=== PATIENT | male | born 1955 | race Caucasian/White ===

== ENCOUNTER → 2017-07-31 | Outpatient (CLI) | payer BC, OTHER ==
[~2017-07-31] VITALS: Ht 185.4 cm; Wt 123.9 kg
[~2017-07-31] MED LIST: ABILIFY10 MG PO; ARMONAIR RESPI55 MCG BOTH NARES; BENADRYL50 MG PO; LEXAPRO20 MG PO; LORADAMED10 MG PO; LOTREL 10/41 CAPSULE PO; MINIPRESS2 MG PO; ZYLOPRIM300 MG PO
[2017-07-31 12:57] LABS: CHLORIDE 106 MEQ/L (99-109); POTASSIUM 4.1 MEQ/L (3.7-5.4); SODIUM 141 MEQ/L (136-147)
[2017-07-31 13:03] LABS: GFR ESTIMATE (CALCULATED) > 59 mL/min/ (58.99-99999); GLUCOSE 94 mg/dL (70-99); UREA NITROGEN (BUN) 8 mg/dL (9-23)
== END | disposition home or self-care (01) ==
LOC: AMB 12:07
PROVIDERS: Anesthesiology
DX: Z12.11 Encounter for screening for malignant neoplasm of colon (principal); K50.10 Crohn's disease of large intestine without complications; K57.30 Diverticulosis of large intestine without perforation or abscess without bleeding; K64.8 Other hemorrhoids; E53.8 Deficiency of other specified B group vitamins; F32.9 Major depressive disorder, single episode, unspecified; I10 Essential (primary) hypertension; Z98.84 Bariatric surgery status
CPT/HCPCS: 80048; 88305; 93005